=== PATIENT | male | born 1950 | race Caucasian/White ===

== ENCOUNTER 2025-04-08 16:48 | Emergency (ER) | payer MEDICARE, BC ==
[2025-04-08] MEDS: Bacitracin Oint 1 GM U/D Packet TOP ONE (18:55)
== END 2025-04-08 19:05 | disposition home or self-care (01) ==
LOC: JP.ED 16:48
DX: S62.664B Nondisplaced fracture of distal phalanx of right ring finger, initial encounter for open fracture (principal); Z79.899 Other long term (current) drug therapy; W23.1XXA Caught, crushed, jammed, or pinched between stationary objects, initial encounter
CPT/HCPCS: 12002; 73120; 99283; A9270; J2003